=== PATIENT | male | born 1945 | race Caucasian/White ===

== ENCOUNTER → 2016-07-03 | Day surgery (SDC) | payer MEDICARE, BC ==
--- NOTE | 2016-07-02 13:53 | Pre-Procedure Note/Attestation ---
Pre-Procedure Note/Attestation Complete Prior to Procedure Planned Procedure: right Procedure Narrative: 1.CATARACT EXTRACTION WITH PHACO AND PC IOL IMPLANTATION, RIGHT EYE. Indications for Procedure Pre-Operative Diagnosis: 1. CATARACT, RIGHT EYE. Attestation I attest that I discussed the nature of the procedure; its benefits; risks and complications; and alternatives (and the risks and benefits of such alternatives ), prior to the procedure, with the patient (or the patient's legal risk control field representative). I attest that, if there was a reasonable possibility of needing a blood transfusion, the patient (or the patient's legal risk control field representative) was given the [facility] standardized written summary, pursuant to the Javier Miguel Blood Safety Act ([place] Health and Safety Code # 1645, as amended). I attest that I re-evaluated the patient just prior to the surgery and that there has been no change in the patient's H&P, except as documented below: ANIL MCLAUGHLIN Jul 02, 2016 13:53
[2016-07-03] VITALS (9 sets, daily range): BP systolic 102–149; BP diastolic 65–79
[~2016-07-03] VITALS: Ht 154.9 cm; Wt 63.5 kg
[~2016-07-03] MED LIST: ASPIR 8181 MG ORAL; Akten 3.5% 1ml Btl ONE; BSS 15ml BTL ONE; BSS 500ml btl ONE; Dexamethasone 4mg/ml vial ONE; Diclofenac Sod 0.1% Op Soln ONE; DiphenhydrAMINE 50mg/ml Inj IVP PRN; EPINEPHrine 1mg/1ml Amp ONE; GARLIC1 EAC1 PO; Gatifloxacin Opth Solution 0.5% ONE; LR 1000ml 1,000 ML IVLG SCH; LR 1000ml ONE; Labetalol 5mg/ml 20ml vial IV PRN; Lidocaine 1% MPF 10mg/ml 5ml ONE; MOVE FREE JOIN1 EACH PO; NS Irrig 1000ml ONE; OMEGA3 PO; Phenylephrine 10% Opth Soln 5ml ONE; Povidone-Iodine 5% opth solution ONE; Sodium Hyaluronate 10 mg/ml 0.85ml ONE; Sterile Water Irrig 1000ml IRRIG ONE; Tropicamide 1% Opth Soln ONE; VIT C PO; VITAMIN B COMP1 EAC2 ORAL; VITAMIN D1000 UNI1 ORAL; acetaZOLAMIDE 125mg tab ORAL ONE; fentaNYL 100 mcg/2 mL IV ONE
[2016-07-03] MEDS: Phenylephrine 10% Opth Soln 5ml RIGHT EYE SCH ×3 (07:05→07:20)
[2016-07-03] MEDS: Diclofenac Sod 0.1% Op Soln RIGHT EYE SCH ×3 (07:05→07:20)
[2016-07-03] MEDS: Akten 3.5% 1ml Btl RIGHT EYE SCH ×3 (07:05→07:19)
[2016-07-03] MEDS: Gatifloxacin Opth Solution 0.5% RIGHT EYE SCH ×3 (07:05→07:20)
[2016-07-03] MEDS: Tropicamide 1% Opth Soln RIGHT EYE SCH ×3 (07:05→07:20)
--- NOTE | 2016-07-03 07:40 | Anethesia Preoperative Eval ---
Anesthesia Pre-op PMH/ROS General Date of Evaluation: Jul 03, 2016 Anesthesiologist: Alexsander ASA Score: ASA 3 Mallampati Score Class I : Soft palate, uvula, fauces, pillars visible Class II: Soft palate, uvula, fauces visible Class III: Soft palate, base of uvula visible Class IV: Only hard plate visible Mallampati Classification: Class II Surgeon: Timmy Diagnosis: Right cataract Surgical Procedure: Right cataract extraction with IOL Anesthesia History: none Family History: no anesthesia problems Allergies: Coded Allergies: No Known Allergies (Unverified , 06/28/16) Medications: see eMAR Past Medical History Cardiovascular: Reports: other - HLD, Denies: CAD, HTN, SD, arrhythmia, valve dz Pulmonary: Denies: COPD, RAMONA, asthma, other Gastrointestinal/Genitourinary: Reports: other - h/o bladder cancer, Denies: CRI, ESRD, GERD Neurologic/Psychiatric: Denies: CVA, TIA, dementia, depression/anxiety, other Endocrine: Denies: DM, hypothyroidism, other, steroids HEENT: Reports: cataract (R), Denies: HOONAH (L), HOONAH (R), cataract (L), glaucoma, other Hematology/Immune: Reports: anemia - chronic, Denies: DVT, bleeding disorder, other Musculoskeletal/Integumentary: Reports: OA, Denies: DDD, DJD, RA, edema, other PSxH Narrative: cystoscopy, right cataract sx Anesthesia Pre-op Phys. Exam Physician Exam Last Vital Signs Date Time Temp Pulse Resp B/P Pulse Ox O2 Delivery O2 Flow Rate FiO2 07/03/16 07:15 98.5 52 17 121/76 99 Room Air Constitutional: NAD Cardiovascular: RRR Respiratory: CTA Airway Exam Mallampati Score: Class II MO: full ROM: full Anesthesia Pre-op A/P Labs szee chart Studies Pre-op Studies: EKG - sr Risk Assessment & Plan Assessment: ASA III Plan: MAC Status Change Before Surgery: No Pre-Antibiotics Drug: N/A JUSTO RODRIGEZ M.D. Jul 03, 2016 07:40
--- NOTE | 2016-07-03 07:41 | Immediate Post-Op Evaluation ---
Immediate Post-Op Evalulation Immediate Post-Op Evalulation Procedure: Right cataract extraction with IOL Date of Evaluation: Jul 03, 2016 Time of Evaluation: 09:21 IV Fluids: 250 Blood Products: 0 Estimated Blood Loss: 0 Urinary Output: 0 Blood Pressure Systolic: 149 Blood Pressure Diastolic: 79 Pulse Rate: 62 Respiratory Rate: 16 O2 Sat by Pulse Oximetry: 99 Temperature (Fahrenheit): 97.8 Pain Score (1-10): 0 Nausea: No Vomiting: No Complications 0 Patient Status: awake, reacts, patent, none Hydration Status: adequate Drug: N/A JUSTO RODRIGEZ M.D. Jul 03, 2016 07:41
--- NOTE | 2016-07-03 07:42 | 48 Hour Post Anesthesia Eval ---
Post Anesthesia Evaluation Procedure: Right cataract extraction with IOL Date of Evaluation: Jul 03, 2016 Blood Pressure Systolic: 143 0: 77 Pulse Rate: 59 Respiratory Rate: 15 O2 Sat by Pulse Oximetry: 99 Airway: patent Nausea: No Vomiting: No Pain Intensity: 0 Hydration Status: adequate Cardiopulmonary Status: at baseline Mental Status/LOC: patient returned to baseline Post-Anesthesia Complications: 0 Follow-up care needed: ready to discharge JUSTO RODRIGEZ M.D. Jul 03, 2016 07:42
--- NOTE | 2016-07-03 09:22 | Brief Operative Note ---
Immediate Post Operative Note Operative Note Chief Complaint: Blurry vision right eye, difficulty driving and reading, right eye Pre-op Diagnosis: 1. CATARACT, RIGHT EYE. 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 Sweet Anesthesia: MAC Specimen: none Complications: none Condition: stable Estimated Blood Loss: none Drains: none Implant(s) used?: Yes - Monofocal PC IOL implanted in the right eye without complication ANIL MCLAUGHLIN Jul 03, 2016 09:22
--- NOTE | 2016-07-04 01:17 | Discharge Summary ---
DATE OF ADMISSION: 07/03/2016 DATE OF DISCHARGE: 07/03/2016 REASON FOR HOSPITALIZATION: 1. Cataract of the right eye. 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 4. Complex cataract right eye. SURGERY PERFORMED: 1. Cataract extraction with phacoemulsification and posterior chamber intraocular lens implantation in the right eye. 2. Malyugin ring insertion into the right eye for treatment of floppy iris syndrome in the right eye. At end of the surgery been Malyugin ring was removed from the anterior chamber. CONDITION IN THE HOSPITAL: The patient tolerated the procedure well without complications. DISCHARGE CONDITION: The patient was stable at discharge. DISCHARGE MEDICATIONS: 1. Prednisolone 1% q.i.d., right eye. 2. Vigamox eyedrops one drop q.i.d., right eye. 3. Ilevro eyedrops one drop daily, right eye. POSTOPERATIVE ORDERS: The patient has to rest at home. No bending. No lifting. Postoperative Followup: The patient will be followed in the office tomorrow morning at 6:30 a.m. Michael Warner M.D. DR: Irlanda JOB#: [id number] CC:
--- NOTE | 2016-07-04 01:17 | Operative Note - Dictated ---
DATE OF OPERATION: 07/03/2016 FACILITY: [facility]. SURGEON: Michael Warner M.D. BUSINESS SEGMENT MANAGER: None. ANESTHESIOLOGIST: Dr. Sweet. ANESTHESIA: Monitored anesthesia care (MAC). PREOPERATIVE DIAGNOSIS: 1. Cataract of the right eye. 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 3. Complex cataract. POSTOPERATIVE DIAGNOSES: 1. Cataract of the right eye. 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 3. Complex cataract. SURGERY PERFORMED: 1. Cataract extraction with phacoemulsification of posterior chamber intraocular lens implantation in the right eye. 2. Insertion of Malyugin ring in the right eye. 3. Treatment of complex cataract. INDICATION FOR SURGERY: The patient is a 71-year-old gentleman with history of high blood pressure, hypercholesterolemia, anemia. Past surgical history is significant for . The patient does not have any allergy to medication. He denies any smoking. Medications given including vitamin C 1000 mg a day, . Never smoked. Drinks alcohol occasionally. Never used illicit drugs. The patient is complaining of blurry vision in the right eye. On examination of the right eye, the cornea was clear. Anterior chamber was clean and quiet. Pupillary reflexes normal. There is floppy iris syndrome. Also he has pseudoexfoliation but he does not have phacodonesis. On examination of the retina, macula is normal. Optic disc is within normal limits. Periphery retina is flat. To improve his vision in the right eye, the cataract has to be removed and posterior chamber intraocular lens has to be implanted. INFORMED CONSENT: The nature of the surgery, risks, benefits, alternatives, and potential complications were explained all in detail to the patient. The potential complications including, but not limited to bleeding, infection, posterior capsular rupture, lens subluxation, flat anterior chamber, iris prolapse, uveitis, corneal edema, macular edema, endophthalmitis, retinal detachment, loss of vision, and even loss of the eye were all explained in detail to the patient. The patient voiced understanding and accepted all the complications. The alternatives including accommodating lens, multifocal lens, toric lens, and conventional cataract surgery with limbal relaxing incision(LRI) for treatment of astigmatism were all explained in detail to the patient. The patient voiced understanding but the patient elected to have only conventional cataract surgery in the right eye. Then, he signed the consent form, which is in the chart. DESCRIPTION OF SURGERY AND FINDINGS: Following that, the patient was taken to the operating room in stable condition. Lidocaine gel Akten 3.5% was applied to the conjunctiva of the right eye. IV sedation was given by the anesthesiologist, Dr. Sweet. After adequate anesthesia and sedation had been achieved, the right eye was prepped and draped in usual fashion for intraocular surgery. Following that, the speculum was placed in the right eye. Following that, using a Super Sharp knife, a clear corneal side port was created. A 1% lidocaine without preservative (MPF) was injected into the anterior chamber. The viscoelastic agent Healon was injected into the anterior chamber. Following that, a clear corneal temporal keratotomy was performed with 2.8 mm keratome. Following that, viscoelastic agent injected into anterior chamber again. Following that, Vision blue was injected under the viscoelastic agent on top of the anterior capsule of the layers to stain the capsule. Following that, a clear and fresh viscoelastic was injected into the anterior chamber again. Under the clear viscoelastic agent, an anterior capsulotomy was performed in the fashion of capsulorrhexis beautifully. Following that, viscoelastic was removed from the anterior chamber. Following that, using a balanced salt solution hydrodissection and hydrodelineation was performed and the nucleus was freed. Following that, the viscoelastic was removed from the anterior chamber again. Following that, viscoelastic agent was injected into the anterior chamber again to protect endothelium of the cornea. Following that, using the phacoemulsification machine in the fashion of horizontal chop, the nucleus was removed in toto. Following that, cortical material was removed from the capsular bag and the capsular bag was polished. Following that, the capsular bag was filled with viscoelastic agent, Healon. Following that, a +22 diopter ZCB00 foldable PCIOL with serial number [id number] was injected into the capsular bag. Using a Sinskey hook, the lens was manipulated and put in the proper position. Following that, the viscoelastic was removed from the anterior and posterior part of the lens. Following that, the anterior chamber was filled with balanced salt solution and the wound was hydrated with balanced salt solution. Following that, the wound was checked for leakage. There was no leakage. Vigamox eyedrops were applied to the conjunctiva of the right eye. The patient tolerated the surgery without complications. At the end of the surgery, the eye was patched with a clear sterile fenestrated shield. Following that, the patient was transferred to the recovery room. In the recovery room, 125 mg Diamox was given by mouth stat. Postoperative orders and directions were given to the patient. The patient will be discharged home upon stabilization. The patient will be followed in my office tomorrow morning at 6:30 a.m. Michael Warner M.D. DR: Irlanda JOB#: [id number] CC:
== END | disposition home or self-care (01) ==
LOC: SUR 06:43
DX: H26.8 Other specified cataract (principal); H21.81 Floppy iris syndrome; E78.5 Hyperlipidemia, unspecified; D64.9 Anemia, unspecified; M19.90 Unspecified osteoarthritis, unspecified site; I35.1 Nonrheumatic aortic (valve) insufficiency; Z85.51 Personal history of malignant neoplasm of bladder
CPT/HCPCS: 66982; J0171; J1100; J3010; J7120; V2632; 94003; 94150

== ENCOUNTER → 2016-08-28 | Day surgery (SDC) | payer MEDICARE, BC ==
--- NOTE | 2016-08-24 09:55 | Pre-Procedure Note/Attestation ---
Pre-Procedure Note/Attestation Complete Prior to Procedure Planned Procedure: left Procedure Narrative: 1. CATARACT EXTRACTION WITH PHACO AND PC IOL IMPLANTATION, LEFT EYE. 2.MALYUGIN RING INSERTION, LEFT EYE FOR FLOPPY IRIS SYNDROME. 3.COMPLEX CATARACT , LEFT EYE Indications for Procedure Pre-Operative Diagnosis: 1. CATARACT ,LEFT EYE. 2. FLOPPY IRIS SYNDROME, LEFT EYE 3. COMPLEX CATARACT , LEFT EYE. Attestation I attest that I discussed the nature of the procedure; its benefits; risks and complications; and alternatives (and the risks and benefits of such alternatives ), prior to the procedure, with the patient (or the patient's legal corporate representative). I attest that, if there was a reasonable possibility of needing a blood transfusion, the patient (or the patient's legal corporate representative) was given the [place] [facility] standardized written summary, pursuant to the Javier Miguel Blood Safety Act ([place] Health and Safety Code # 1645, as amended). I attest that I re-evaluated the patient just prior to the surgery and that there has been no change in the patient's H&P, except as documented below: ANIL MCLAUGHLIN Aug 24, 2016 09:55
[~2016-08-28] VITALS: Ht 154.9 cm; Wt 63.5 kg
[2016-08-28] VITALS (10 sets, daily range): BP systolic 106–136; BP diastolic 58–78
[~2016-08-28] MED LIST changes: +Carbachol 0.01% Op Soln 1.5ml vial ONE; -Labetalol 5mg/ml 20ml vial IV PRN; +Midazolam 2mg/2ml Inj ONE; +Propofol 10mg/ml 20ml IV ONE; -Sodium Hyaluronate 10 mg/ml 0.85ml ONE; +Tetracaine 0.5% Opth Soln ONE; +fentaNYL 100 mcg/2 mL IV PRN
[2016-08-28] MEDS: Diclofenac Sod 0.1% Op Soln LEFT EYE SCH ×3 (06:04→06:35)
[2016-08-28] MEDS: Akten 3.5% 1ml Btl LEFT EYE SCH ×3 (06:04→06:35)
[2016-08-28] MEDS: Gatifloxacin Opth Solution 0.5% LEFT EYE SCH ×3 (06:05→06:36)
[2016-08-28] MEDS: Tropicamide 1% Opth Soln LEFT EYE SCH ×3 (06:05→06:35)
[2016-08-28] MEDS: Phenylephrine 10% Opth Soln 5ml LEFT EYE SCH ×3 (06:05→06:35)
[2016-08-28 07:01] LABS: MEAN CORPUSCULAR HEMOGLOBIN 21.5 PG (27.0-31.0); MEAN CORPUSCULAR HGB CONC 31.3 G/DL (32.0-36.0); MEAN CORPUSCULAR VOLUME 69 FL (80-99); MEAN PLATELET VOLUME 7.8 FL (6.5-10.1); PLATELET COUNT 193 K/UL (150-450); RED BLOOD COUNT 6.31 M/UL (4.70-6.10); RED CELL DISTRIBUTION WIDTH 13.9 % (11.6-14.8); WHITE BLOOD COUNT 5.4 K/UL (4.8-10.8)
[2016-08-28 07:06] LABS: ANION GAP 14 (5-15); CALCIUM 9.1 mg/dL (8.6-10.2); CARBON DIOXIDE 26 mEQ/L (20-30); CHLORIDE 102 mEQ/L (98-107); HEMOLYSIS 3; POTASSIUM 4.2 mEQ/L (3.4-4.9); SODIUM 142 mEQ/L (135-145)
--- NOTE | 2016-08-28 07:20 | Anethesia Preoperative Eval ---
Anesthesia Pre-op PMH/ROS General Date of Evaluation: Aug 28, 2016 Time of Evaluation: 07:17 Anesthesiologist: Maricruz ASA Score: ASA 2 Mallampati Score Class I : Soft palate, uvula, fauces, pillars visible Class II: Soft palate, uvula, fauces visible Class III: Soft palate, base of uvula visible Class IV: Only hard plate visible Mallampati Classification: Class II Surgeon: Timmy Diagnosis: L eye cataract Surgical Procedure: L eye cataract extraction with IOL Anesthesia History: none Family History: no anesthesia problems Allergies: Coded Allergies: No Known Allergies (Unverified , 06/28/16) Medications: see eMAR Past Medical History Cardiovascular: Denies: CAD, HTN, MO, arrhythmia, other, valve dz Pulmonary: Denies: COPD, RAMONA, asthma, other Gastrointestinal/Genitourinary: Reports: GERD, other - h/o bladder tumor, Denies: CRI, ESRD Neurologic/Psychiatric: Denies: CVA, TIA, dementia, depression/anxiety, other Endocrine: Denies: DM, hypothyroidism, other, steroids HEENT: Reports: cataract (R) - s/p Sx Hematology/Immune: Denies: DVT, anemia, bleeding disorder, other Musculoskeletal/Integumentary: Reports: DJD, Denies: DDD, OA, RA, edema, other PMH Narrative: as above PSxH Narrative: Bladde hernia repairr tumor Anesthesia Pre-op Phys. Exam Physician Exam Last Vital Signs Date Time Temp Pulse Resp B/P Pulse Ox O2 Delivery O2 Flow Rate FiO2 08/28/16 06:15 97.7 56 20 135/78 98 Room Air Constitutional: NAD Neurologic: CN 2-12 intact Cardiovascular: RRR, no M/R/G Respiratory: CTA Gastrointestinal: S/NT/ND Airway Exam Mallampati Score: Class II MO: limited Neck: stiff Teeth: missing Anesthesia Pre-op A/P Labs Hematology Test 08/28/16 06:30 White Blood Count 5.4 K/UL (4.8-10.8) Red Blood Count 6.31 M/UL (4.70-6.10) H Hemoglobin 13.6 G/DL (14.2-18.0) L Hematocrit 43.4 % (42.0-52.0) Mean Corpuscular Volume 69 FL (80-99) L Mean Corpuscular Hemoglobin 21.5 PG (27.0-31.0) L Mean Corpuscular Hemoglobin Concent 31.3 G/DL (32.0-36.0) L Red Cell Distribution Width 13.9 % (11.6-14.8) Platelet Count 193 K/UL (150-450) Mean Platelet Volume 7.8 FL (6.5-10.1) Neutrophils (%) (Auto) % (45.0-75.0) Lymphocytes (%) (Auto) % (20.0-45.0) Monocytes (%) (Auto) % (1.0-10.0) Eosinophils (%) (Auto) % (0.0-3.0) Basophils (%) (Auto) % (0.0-2.0) Neutrophils % (Manual) Pending Lymphocytes % (Manual) Pending Platelet Estimate Pending Platelet Morphology Pending Chemistry Test 08/28/16 06:30 Sodium Level 142 mEQ/L (135-145) Potassium Level 4.2 mEQ/L (3.4-4.9) Chloride Level 102 mEQ/L (98-107) Carbon Dioxide Level 26 mEQ/L (20-30) Anion Gap 14 (5-15) Blood Urea Nitrogen 14 mg/dL (7-23) Creatinine 1.0 mg/dL (0.7-1.2) Estimat Glomerular Filtration Rate mL/min (>60) Glucose Level 123 mg/dL (74-106) H Calcium Level 9.1 mg/dL (8.6-10.2) Studies Pre-op Studies: EKG - NSR Risk Assessment & Plan Assessment: ASA 2 Plan: MAC Status Change Before Surgery: No Pre-Antibiotics Drug: none TYLER KERR M.D. Aug 28, 2016 07:20
--- NOTE | 2016-08-28 08:07 | Brief Operative Note ---
Immediate Post Operative Note Operative Note Chief Complaint: Blurry vision, left eye. Difficulty driving and reading Pre-op Diagnosis: 1. CATARACT ,LEFT EYE. 2. FLOPPY IRIS SYNDROME, LEFT EYE 3. COMPLEX CATARACT , LEFT EYE. Procedure: 1- Cataract extraction with phaco and PC IOL implantation, left eye 2- Insertion Malyugin ring for floppy iris anf Pseudoexfoliation syndrome, left eye 3- Complex Cataract, left eye Post-op Diagnosis: same as pre-op Surgeon: Anil Warner MD Procurement Cost Coordinator: None Additional Surgeons: None Anesthesiologist: Dr. Alcantara Anesthesia: MAC Specimen: none Complications: none Condition: stable Estimated Blood Loss: none Drains: none Implant(s) used?: Yes - Monofocal PC IOL implanted in the left eye without complication. ANIL WARNER Aug 28, 2016 08:07
[2016-08-28 08:32] LABS: BAND NEUTROPHILS % (MANUAL) 1 % (0-8); BASOPHILS % (MANUAL) 1 % (0-2); EOSINOPHILS % (MANUAL) 4 % (0-3); LYMPHOCYTES % (MANUAL) 34 % (20-45); NEUTROPHILS % (MANUAL) 52 % (45-75); TOTAL CELLS COUNTED 100
[2016-08-28 08:34] LABS: HYPOCHROMASIA 1+; PLATELET ESTIMATE ADEQUATE; PLATELET MORPHOLOGY NORMAL
--- NOTE | 2016-08-28 08:34 | Operative Note - PDOC ---
Operative Note Operative Note Operative Report DATE OF OPERATION:08/28/2016 FACILITY: [facility] SURGEON: Michael Warner MD. HEALTH ADMINISTRATION TEACHER: None ANESTHESIOLOGIST: Dr. Alcantara ANESTHESIA: Monitored anesthesia care (MAC) PREOPERATIVE DIAGNOSES: 1. Cataract, left eye. 2- Floppr iris syndrome. 3- Complex cataract, left eye POSTOPERATIVE DIAGNnosis: 1- Same as above SURGERY PERFORMED: 1. Cataract extraction with phacoemulsification and posteriro chamber intraocular lens implantation in the left eye. 2. Malyugin ring insertion, left eye. INDICATION FOR SURGERY: The patient is an 71- year-old gentleman with history of high blood pressure, hyperchlostrolemia, and anemia. he has BPH. He had cataract surgery2,o months ago and he is happy with yhe result. He does not have allergy to any medication. He does not smok or drink. he is taking medications including, vit. C, divan and simvastatine. He has some back pain and osteoarthritis as well. He is taking Flomax for BPH. Diovan for high blood pressure. Plavix, aspirin and Lipitor for hypercholeserolemia. The patient has coronary artery disease. He underwent coronary angiography with stent in his coronary artery. He doesnt smoke doesnt drink and no allergy to medications. He is complaining of blurry vision in the left eye. On examination of the Left eye., the cornea is clear. ANterior chamber is clean and quiet, but is shallow. The pupillary reflex is normal. There is no RAPD. There is 4 nuclear sclerosis and 2 cortical cataract. The fundus shows normal optic disc, normal macula, and periphery retina is flat. To improve his vision int he left eye, the cataract has to be removed and posterior chamber intraocular lens has to be implanted. INFORMED CONSENT: The nature of the surgery, risks benefits, alternatives, and potential complications were explained all in detail to the patient. The potential complications including. But not limited to bleeding, infection, posterior capsular rupture,lens subluxation, flat anterior chamber,iris prolapse , uveitis, corneal edema, macular edema, endophthalmitis, retinal detachment, loss of vision and even loss of the eye were all explained in detail to the patient. The patient voiced understanding and accepted all the complications.The alternatives including accommodating lens, multifocal lens, toric lens, and conventional cataract surgery with limbal relaxing incision (LRI ) for treatment of astigmatism were all explained in detail to the patient who voiced understanding. The patient elected to have cataract surgery with insertion of the multifocal lens and limbal relaxing incision for astigmatism. Then, he signed the consent from,which is in the chart. DESCRIPTION OF SURGERY AND FINDINGS: Following hat, the patient was teken to the operation room in a stable condition. Lidocaine gel Akten 3.5% were applied to the conjuctiva of the left eye. Anesthesia was given by the anesthesiologist , Dr. Sewet. After adequate anesthesia and sedation had been achieved, the left eye was prepped and draped in the usual and sterile fashion for intraocular surgery.Following that, a speculum was placed in the left eye. Following that, before the patient was taken to the operation room, the 180 and 90 meridian of the cornea was marked. In the operation room, using a corneal marker and marking pen, the steep meridian of the cornea was marked. Following that, using a geo knife, two parallel incisions was placed on the steep meridian of the cornea to treat the patients astigmatism. Following that, using a super sharp knife, a clear corneal side port was created. Following that 1% lidocaine without preservative (MPF) was injected into the anterior chamber.Viscoelastic agent Healon was injected into the anterior chamber. Following that, a clear corneal temporal keratotomy was performed with a 2.8 mm keratome. Following that, viscoelastic agent was injected into the anterior chamber again. Following that, Vision blue was injected under the viscoelastic agent to stain the anterior capsule. Following that, a clear fresh viscoelastic agent was injected into the anterior chamber again. Under the viscoelastic agent , an anterior capsulotomy was performed in the fashion of capsulorrhexis beautifully. Following that viscoelastic agent was removed from the anterior chamber. Following that, using a balanced salt solution hydrodissection and hydrodelineation was performed and the nucleus was freed. Following that, the viscoelastic agent was injected into the anterior chamber again to protect the endothelium of the cornea. Following that, using phacoemulsification machine inthe fashion of horizontal chop, the nucleus was removed in toto. Following that, the cortical material was removed from the capsular bag with irrigation aspiration unit and the capsular bag was polished.Following that, the capsular bag was filled with viscoelastic agent. Following that, a+18.0 18 diopter , [id number] foldable PCIOL was injected into the capsular bag. Using a Sinskey hook, the lens was manipulated within the proper position.Following that, viscoelastic agent was removed from the anterior and posterior part of the lens.The anterior chamber was filled with balanced salt solution. Following that , the wound was hydrated with balanced salt solution and the wound was checked for leakage. There was no leakage. Following that, the wound was hydrated and the wound was checked for leakage. There was no leakage. Following that, Vigamox eye drops were applied to the conjuctiva of the left eye. The patient tolerated the surgery without complications. At the end of the surgery, the eye was patched with a clear sterile fenestrated shield. Following that, the patient was transferred to the recovery room. In the recovery room, 125mg Diamox was given by mouth stat. Postoperative orders and directions were given to the patient. The patient will be discharged home upon stabilization. The patient will be followed in my office tomorrow morning at 7 o 'clock. MD LISSETTE Jha JOHN Aug 28, 2016 08:34
[2016-08-28 08:35] LABS: MICROCYTES 1+
--- NOTE | 2016-08-28 08:44 | Immediate Post-Op Evaluation ---
Immediate Post-Op Evalulation Immediate Post-Op Evalulation Procedure: L eye cataract extraction with IOL Date of Evaluation: Aug 28, 2016 Time of Evaluation: 08:05 IV Fluids: 300 Blood Products: none Estimated Blood Loss: none Urinary Output: none Blood Pressure Systolic: 116 Blood Pressure Diastolic: 57 Pulse Rate: 64 Respiratory Rate: 20 O2 Sat by Pulse Oximetry: 99 Temperature (Fahrenheit): 97.4 Pain Score (1-10): 1 Nausea: No Vomiting: No Complications none Patient Status: awake, patent, none Hydration Status: adequate TYLER KERR M.D. Aug 28, 2016 08:44
--- NOTE | 2016-08-28 09:50 | Pre-op HX & Phy Repo 2 SIG ---
DATE OF ADMISSION: 08/28/2016 PRESURGICAL INTERNAL MEDICINE HISTORY AND PHYSICAL REASON FOR EVALUATION: I was asked by Dr. Michael Warner, to see this 71-year-old male, who going for elective surgery on the left eye. The patient has a cataract left eye. Please see bricklayer paving brick's History and Physical by Dr. Michael Warner. The patient was evaluated. Chart was reviewed. PAST MEDICAL HISTORY/REVIEW OF SYSTEMS: Remarkable for bladder cancer six years ago. No history of hypertension or diabetes. No history of chest pain, palpitation or heart attack. No stroke or seizure. Denies history of GI problems. No history of hepatitis. No history of renal failure or prostate problem. No thyroid problem. The patient has history of anemia. PAST SURGICAL HISTORY: Right eye cataract, inguinal hernia, and bladder chemotherapy treatment. MEDICATIONS: Current medications include aspirin, vitamin B, vitamins C, B complex, calcium supplements and fish oil. ALLERGIES: Not known. SOCIAL HISTORY: The patient denies history of smoking. Alcohol occasionally. FAMILY HISTORY: Father from complication of smoking or heart problems. Mother has diabetes mellitus. PHYSICAL EXAMINATION: GENERAL: Not in distress, the patient at bedside. VITAL SIGNS: Blood pressure 151/78, temperature 97.7 degrees, pulse 56 and regular, respirations 20, and O2 saturation 98% on room air. SKIN: Warm and dry, more on the left chin. LYMPHATICS: Lymph nodes not enlarged. HEENT: Head, normocephalic. Male balding. Nose, clear. No discharge. Ears, clear. No discharge. Eyes, full description per Dr. Michael Warner. Mouth, clear and moist. No dentures. NECK: Supple. Trachea midline. No jugular vein distention. Carotids artery +2. CHEST: No deformity or asymmetry. LUNGS: Clear. No rales or rhonchi. HEART: Sinus bradycardia. No murmur. No S3 or S4. ABDOMEN: Soft. No palpable mass. No rebound. Liver and spleen not enlarged. EXTREMITIES: No edema. No calf tenderness. No varicose veins. No deformities. GENITOURINARY TRACT: No dysuria. No CVA tenderness. History of bladder cancer. NERVOUS SYSTEM: No tremor. No nystagmus. No asymmetry. 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 Lab work pending and the patient did not eat or drink since 8 p.m. yesterday. DIAGNOSES: 1. Cataract, left eye. 2. History of bladder cancer. 3. History of anemia. 4. 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 PLAN: Cataract extraction, left eye with intraocular lens implant per Dr. Michael Warner. CONCLUSION: The patient's vital signs stable. EKG shows old inferior wall myocardial infarction. The patient is asymptomatic. He did not eat or drink from last night. The patient's condition optimized for surgery. [id number] contact 60 minute. Thank you very much, Dr. Warner, for privilege to participate presurgical care of this interesting patient. Zenia Otero M.D. DR: Kym JOB#: [id number] CC:
--- NOTE | 2016-08-28 10:04 | 48 Hour Post Anesthesia Eval ---
Post Anesthesia Evaluation Procedure: L eye cataract extraction with IOL Date of Evaluation: Aug 28, 2016 Time of Evaluation: 10:03 Blood Pressure Systolic: 136 0: 58 Pulse Rate: 74 Respiratory Rate: 20 Temperature (Fahrenheit): 97.6 O2 Sat by Pulse Oximetry: 98 Airway: patent Nausea: No Vomiting: No Pain Intensity: 1 Hydration Status: adequate Cardiopulmonary Status: stable Mental Status/LOC: patient returned to baseline Follow-up Care/Observations: n/a Post-Anesthesia Complications: none Follow-up care needed: ready to discharge TYLER KERR M.D. Aug 28, 2016 10:04
== END | disposition home or self-care (01) ==
LOC: SUR 05:36
DX: H25.12 Age-related nuclear cataract, left eye (principal); H25.012 Cortical age-related cataract, left eye; H21.81 Floppy iris syndrome; N40.0 Benign prostatic hyperplasia without lower urinary tract symptoms; K21.9 Gastro-esophageal reflux disease without esophagitis; M19.90 Unspecified osteoarthritis, unspecified site; I25.2 Old myocardial infarction; Z85.51 Personal history of malignant neoplasm of bladder
CPT/HCPCS: 36415; 66982; 80048; 85007; 85025; J0171; J1100; J2250; J2704; J3010; J7120; V2632; 94003; 94150